=== PATIENT | male | born 1995 | race African-American/Black ===

== ENCOUNTER 2018-04-22 18:13 | Emergency (ER) | payer OTHER ==
[~2018-04-22] VITALS: Ht 177.8 cm; Wt 97.2 kg
[~2018-04-22 18:13] MED LIST: CITRATE OF MAG296 ML PO; FLEXERIL10 MG PO; FLEXERIL5 MG PO; IBUPROFEN600 MG PO; KEPPRA500 MG PO; KEPPRA750 MG PO; MIRALAX17 GM PO; MOTRIN600 MG PO; NO HOME MEDS; NORCO 5/3251 TABLET PO; OXAYDO5 MG PO
[2018-04-22] MEDS ORDERED: NAPROSYN500 MG PO (21:01)
[2018-04-22 21:21] VITALS: BP 134/87
== END 2018-04-22 21:24 | disposition home or self-care (01) ==
LOC: EME 18:13
DX: S62.304A Unspecified fracture of fourth metacarpal bone, right hand, initial encounter for closed fracture (principal); W22.01XA Walked into wall, initial encounter; Z91.041 Radiographic dye allergy status
CPT/HCPCS: 73130; 99281; 99284